=== PATIENT | male | born 1990 | race Caucasian/White ===

== ENCOUNTER 2016-11-01 22:12 | Emergency (ER) | payer SELFPAY ==
[~2016-11-01] VITALS: Ht 188 cm; Wt 79.4 kg
[~2016-11-01 22:12] MED LIST: AMOX875T PO; HYDR-971 PO; NAPR500T8 PO
[2016-11-01] MEDS ORDERED: fentaNYL PF VIAL 100 MCG/2 ML VIAL IV PRN (23:15)
[2016-11-01] MEDS ORDERED: IV NORMAL SALINE 1000ML BAG 1,000 ML IV ONE (23:15)
[2016-11-01] MEDS ORDERED: CONTRAST GIVEN MC PRN (23:30)
[2016-11-01] MEDS ORDERED: IOHEXOL 300 MG/ML 75 ML VIAL IV ONE (23:30)
[2016-11-01 23:56] LABS: BASO % 1 % (0-3); EOS % 2 % (0-3); HEMATOCRIT 40.5 % (39.0-53.0); HEMOGLOBIN 14.1 g/dL (13.0-17.5); LYMPH # 3.7 x10^3/uL (1.0-4.8); LYMPH % 45 % (24-48); MEAN CORPUSCULAR HEMOGLOBIN 31 pg (25-35); MEAN CORPUSCULAR HGB CONC 35 g/dL (31-37); MEAN CORPUSCULAR VOLUME 88 fL (79-100); MONO % 8 % (0-9); NEUT % 45 % (31-73); PLATELET COUNT 179 x10^3/uL (140-400); RED CELL DISTRIBUTION WIDTH 13.2 % (11.5-14.5); WHITE BLOOD COUNT 8.2 x10^3/uL (4.0-11.0)
[2016-11-02 00:08] LABS: CALCIUM 8.7 mg/dL (8.5-10.1); CREATININE 0.9 mg/dL (0.7-1.3); POTASSIUM 3.9 mmol/L (3.5-5.1)
[2016-11-02 00:58] VITALS: BP 136/66
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
[2016-11-02] MEDS ORDERED: HYDR-971 PO (01:07)
[2016-11-02] MEDS ORDERED: IBUP-1007 PO (01:07)
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
== END 2016-11-02 01:12 | disposition home or self-care (01) ==
LOC: ER 22:12
DX: S20.212A Contusion of left front wall of thorax, initial encounter (principal); S30.1XXA Contusion of abdominal wall, initial encounter; K08.409 Partial loss of teeth, unspecified cause, unspecified class; W20.8XXA Other cause of strike by thrown, projected or falling object, initial encounter; Y93.89 Activity, other specified; Y92.89 Other specified places as the place of occurrence of the external cause; Y99.8 Other external cause status
CPT/HCPCS: 36415; 71260; 74177; 80048; 85027; 96361; 96374; 99285; J3010; J7030; Q9967

== ENCOUNTER 2016-11-28 01:26 | Emergency (ER) | payer OTHER ==
[~2016-11-28] VITALS: Ht 188 cm; Wt 70.3 kg
[~2016-11-28 01:26] MED LIST changes: +IBUP-1007 PO
[2016-11-28 01:30] VITALS: BP 137/65
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
[2016-11-28] MEDS ORDERED: CLIN300C8 PO (02:15)
[2016-11-28] MEDS ORDERED: diphenhydrAMINE HCL 25 MG CAPSULE PO ONE ×2 (02:21→02:45)
[2016-11-28] MEDS ORDERED: diphenhydrAMINE 50 MG/ML VIAL IM ONE (02:30)
[2016-11-28] MEDS ORDERED: CLINDAMYCIN HCL 150 MG CAPSULE. PO ONE (02:30)
== END 2016-11-28 02:36 | disposition home or self-care (01) ==
LOC: ER 01:26
DX: L73.9 Follicular disorder, unspecified (principal); J02.9 Acute pharyngitis, unspecified
CPT/HCPCS: 99283; Q0163

== ENCOUNTER 2018-02-22 21:50 | Emergency (ER) | payer SELFPAY ==
[~2018-02-22] VITALS: Ht 172.7 cm; Wt 70.3 kg
[~2018-02-22 21:50] MED LIST changes: +CLIN300C8 PO
[2018-02-22 22:55] VITALS: BP 125/58
[2018-02-22] MEDS ORDERED: DIPHTH,PERTUSS(ACELL),TET TOX 0.5 ML DISP.SYRIN. VAX IM ONE (23:00)
[2018-02-22] MEDS ORDERED: TETRACAINE 0.5% OPHTH SOLUTION 4ML BOTTLE. OS ONE (23:00)
[2018-02-22] MEDS ORDERED: FLUORESCEIN OPHTH TEST STRIP. OS ONE (23:00)
[2018-02-22] MEDS ORDERED: TRAM50TA PO (23:01)
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
== END 2018-02-22 23:22 | disposition home or self-care (01) ==
LOC: ER 21:50
DX: S80.02XA Contusion of left knee, initial encounter (principal); T15.02XA Foreign body in cornea, left eye, initial encounter; F32.9 Major depressive disorder, single episode, unspecified; F41.9 Anxiety disorder, unspecified; W22.8XXA Striking against or struck by other objects, initial encounter; Y93.89 Activity, other specified; Y92.89 Other specified places as the place of occurrence of the external cause; Y99.0 Civilian activity done for income or pay
CPT/HCPCS: 90471; 90715; 99283; 99284

== ENCOUNTER 2019-05-28 02:17 | Emergency (ER) | payer SELFPAY ==
[~2019-05-28] VITALS: Ht 180.3 cm; Wt 79.4 kg
[~2019-05-28 02:17] MED LIST changes: +HYDR-3164 PO; -HYDR-971 PO; +TRAM50TA PO
[2019-05-28 02:28] VITALS: BP 131/69
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
[2019-05-28] MEDS ORDERED: traMADol 50 MG TABLET PO ONE (03:30)
== END 2019-05-28 03:26 | disposition home or self-care (01) ==
LOC: ER 02:17
DX: K08.89 Other specified disorders of teeth and supporting structures (principal); F41.9 Anxiety disorder, unspecified; F32.9 Major depressive disorder, single episode, unspecified; Z98.890 Other specified postprocedural states
CPT/HCPCS: 64400; 99284